=== PATIENT | male | born 1955 | race Caucasian/White ===

== ENCOUNTER 2025-08-30 05:45 | Day surgery (SDC) | payer OTHER, SELFPAY ==
--- NOTE | 2025-08-29 06:35 | EKG_ITS ---
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
[2025-08-29 07:53] VITALS: BMI 31.6
[2025-08-29 09:04] LABS: Basophils # (Auto) 0.0 Thou/mm3 (0.0-0.2); Basophils % (Auto) 1 % (0-2.5); Eosinophils # (Auto) 0.2 Thou/mm3 (0.0-0.5); Eosinophils % (Auto) 3 % (0-10); Hematocrit 42.3 % (41.0-53.0); Hemoglobin 14.6 g/dL (13.5-16.0); Immature Granulocytes Auto 0.01 Thou/mm3 (0.00-0.00); Lymphocytes # (Auto) 1.2 Thou/mm3 (1.0-4.8); Lymphocytes % (Auto) 24 % (10-50); Mean Corpuscular HGB Conc 34.5 g/dl (31.0-37.0); Mean Corpuscular Hemoglobin 31.5 pg (25.0-35.0); Mean Corpuscular Volume 91 fL (80-100); Monocytes # (Auto) 0.6 Thou/mm3 (0.0-0.8); Monocytes % (Auto) 11 % (0-12); Neutrophils # (Auto) 3.1 Thou/mm3 (1.8-7.7); Neutrophils % (Auto) 61 % (37-80); Nucleated Red Blood Cell # 0.00 Thou/mm3 (0.00-0.00); Nucleated Red Blood Cell % 0 /100 WBC (0); Platelet Count 198 Thou/mm3 (140-440); RDW Standard Deviation 42.2 fL (35.1-43.9); Red Blood Count 4.63 Miln/mm3 (4.50-5.90); White Blood Count 5.1 Thou/mm3 (3.8-10.6)
[2025-08-29 09:12] LABS: INR 1.1 (0.9-1.3); Partial Thromboplastin Time 24.8 Seconds (22.0-36.0); Prothrombin Time 11.3 Seconds (9.0-12.2)
[2025-08-29 09:16] LABS: Alanine Aminotransferase 26 U/L (10-49); Albumin, Serum 4.5 gm/dL (3.4-4.8); Albumin/Globulin Ratio 1.7 (1.2-2.2); Alkaline Phosphatase 59 U/L (46-116); Anion Gap 7 (7-16); Aspartate Amino Transferase 35 U/L (0-34); BUN/Creatinine Ratio 10 Ratio (12-20); Bilirubin,Total 0.6 mg/dL (0.3-1.2); Blood Urea Nitrogen 9 mg/dL (9-23); Calcium 9.8 mg/dL (8.3-10.6); Calcium (Corrected) 9.8 mg/dL (8.5-10.1); Carbon Dioxide 27.7 mMol/L (20.0-31.0); Chloride 104 mMol/L (98-107); Creatinine (Component) 0.9 mg/dL (0.6-1.3); Estimated Creatinine Clearance 97.5 mL/min (>60); Globulin 2.6 gm/dL (2.3-3.5); Glucose 100 mg/dL (74-106); Osmolality,Calculated 276 (275-295); Potassium 4.0 mMol/L (3.4-5.1); Sodium 139 mMol/L (136-145); Total Protein 7.1 gm/dL (5.7-8.2); eGFR > 60 See Note
[2025-08-30] VITALS (8 sets, daily range): BP systolic 132–142; BP diastolic 76–86; PULSE 60–69; RESP 13–20; TEMP 36.2–36.7; O2SAT 95–99; BMI 31.4
--- NOTE | 2025-08-30 07:32 | SUR.PREOP ---
Patient expressed gratitude for prayer before their procedure.
--- NOTE | 2025-08-30 09:44 | SUR.PHASEI ---
0944 Patient arrived to recovery resting comfortably in [facility], drowsy and talking with staff, on oxygen 5L via nasal cannula, breathing unlabored, vital signs stable, denies pain, dressing intact to left groin; sutures, gauze, medipore tape, no bleeding noted, report received from Dr. Alarcon and Lo
--- NOTE | 2025-08-30 09:55 | ESOP_ITS ---
Date of Procedure 08/30/25 Pre Op Diagnosis Symptomatic left inguinal hernia Post Op Diagnosis Same, indirect and type Procedure Repair of the left inguinal hernia with 2 x 4 Marlex mesh in the floor of the inguinal canal Findings The patient was found to have a tiny sac which was not causing hernia but most of the hernia was preperitoneal fat which was suture-ligated at the internal ring Procedure Description After the patient was brought to the operating room endotracheal anesthesia was given. Lower abdomen was prepped prepped with ChloraPrep solution draped in a sterile manner. Timeout was performed. Then I made a standard left groin incision for about 7 cm in length and the external oblique was reached. This was opened and cord structures were encircled around a [place] drain. I found out that the patient had an indirect inguinal hernia because of the preperitoneal fat coming along the cord structures. There is a slight weakness on the floor of the inguinal canal but there is no real direct inguinal hernia. This bulging was due to his age I do not due to herniation. There were at least 2 preperitoneal fat projections and there was from the cord structures and suture-ligated at the internal ring with 2-0 chromic and divided. Then identified a small sac without having any hernia contents. The sac was suture- ligated to the internal ring with 2-0 chromic to prevent any future herniation. The floor of the inguinal canal appeared reasonably strong for someone who is 70 years old. I did not see any need for reconstruction. Therefore I placed a 2 x 4 Marlex mesh attaching it medially to the pubic tubercle with a 2-0 Prolene. This mesh was cut to allow the cord structures and then it was tucked underneath the external oblique. 1 stitch was placed lateral to the cord structures to keep it in place. The external oblique was closed with 2-0 Vicryl. The subcutaneous tissue was closed with 3-0 chromic and the skin was closed with 4-0 Monocryl subcuticular stitch. I injected 20 cc of half percent Marcaine for analgesia before closure. Anesthesia GETA Implants 2 x 4 Marlex mesh Pathology / specimen None IVF Infused 1,000 Estimated Blood Loss 20 Surgeon Nafisa Richardson MD Surgical Staff Operation Date: 08/30/25 08:00 Case Staff Anesthesiologist: Catracho Alarcon RN First Assistant: Missy Randhawa
[2025-08-30] MEDS: fentaNYL CIT INJ 50 mCg/ML AMP 2ML 25 MCG IVP ×2 (10:11→10:24)
--- NOTE | 2025-08-30 10:50 | SUR.PHASEII ---
1050 Patient meets discharge criteria from recovery, awake and alert, breathing unlabored, vital signs stable, drinking 7up; denies nausea, per patient his pain is tolerable, assisted with dressing into his clothing by this writer producer, discharge instructions given to patient and patients sister, sister signed discharge instructions. Patient given all his belongings prior to discharge, transported via wheelchair and left in a private vehicle.
== END 2025-08-30 10:50 | disposition home or self-care (01) ==
PROVIDERS: PCP Family Medicine; Referring Provider Surgery; Visit Provider Surgery
PROC: (CPT 49505; principal; 2025-08-30 08:00)
DX: K40.90 Unilateral inguinal hernia, without obstruction or gangrene, not specified as recurrent (principal); Z01.810 Encounter for preprocedural cardiovascular examination
CPT/HCPCS: 49505; 36415; 80053; 85025; 85610; 85730; 93005; A4217; A4649; C1781; J0131; J0461; J1100; J1885; J2250; J2405; J2704; J3010; J3490; A9270